=== PATIENT | male | born 1950 | race Caucasian/White ===

== ENCOUNTER 2022-10-20 11:53 | Outpatient (OUT) | payer MEDICARE, SELFPAY ==
--- NOTE | 2022-10-20 12:11 | CT_ITS ---
The [address] [address] Patient Name: JOSE ANGEL SEXTON MRN: [id number] date: 1950 Sex: M Assigned Patient Location: CT Current Patient Location: CT Accession/Order Number: [id number] Exam Date: 10/20/2022 13:30 Report Date: 10/21/2022 06:19 At the request of: TAMELA HUERTA Procedure: CT abdomen pelvis w con EXAM: CT scan of the abdomen and pelvis using 99 mL of IV iodinated contrast. Oral contrast. Dose reduction technique used: Automated exposure control and/or adjustment of the mA and/or kV according to patient size and/or use of iterative reconstruction technique. REASON FOR EXAM: Unexplained weight loss R63.4, elevated liver enzymes R74.8 COMPARISON: CT scan dated 06/15/2019 FINDINGS: Hypoenhancing solid pancreatic tail mass measuring 7.8 x 4.5 cm. This encases the splenic artery. The mass partially encases the upper superior mesenteric vein which has no associated mild narrowing. No encasement of the superior mesenteric artery. Mildly prominent peripancreatic lymph nodes, for example a peripancreatic lymph node anterior to the IVC measures 2.7 x 1.4 cm. Colonic diverticulosis. Small right hepatic cyst. 3 mm solid left lower lobe pulmonary nodule. Tiny 3 mm solid right lower lobe pulmonary nodules are chronic and likely benign. No evidence of appendicitis. No free intraperitoneal air. No free fluid in the abdomen or pelvis. No dilated or thickened loops of small bowel or colon. No hydronephrosis or obstructing renal or ureteral calculi. Liver, pancreas, spleen, bilateral kidneys, and bilateral adrenal glands are otherwise unremarkable. No lymphadenopathy in the abdomen or pelvis. Remainder unremarkable. IMPRESSION: 1. Pancreatic mass likely represents pancreatic cancer. Lymphoma would be an alternative consideration. 2. Mildly enlarged peripancreatic lymph nodes may represent johnathon metastases. 3. Tiny indeterminate left lower lobe pulmonary nodule. Electronically authenticated by: KALEIGH HERNANDEZ Date: 10/21/2022 06:19
== END 2022-10-20 11:54 ==
LOC: CT 11:55
PROVIDERS: PCP Internal Medicine; Visit Provider Internal Medicine
DX: R63.4 Abnormal weight loss (principal); R74.8 Abnormal levels of other serum enzymes; D64.9 Anemia, unspecified; K86.9 Disease of pancreas, unspecified; R59.0 Localized enlarged lymph nodes; R91.1 Solitary pulmonary nodule
CPT/HCPCS: 74177; Q9967

== ENCOUNTER 2022-10-22 10:55 | Outpatient (OUT) | payer MEDICARE, SELFPAY ==
[2022-10-22 12:15] LABS: Thyroid Stimulating Hormone 6.604 uIU/mL (0.358-3.740)
== END 2022-10-22 10:56 ==
LOC: LAB 11:01
PROVIDERS: PCP Internal Medicine; Visit Provider Internal Medicine
DX: E03.8 Other specified hypothyroidism (principal)
CPT/HCPCS: 36415; 84443